=== PATIENT | male | born 1940 | race Caucasian/White ===

== ENCOUNTER → 2016-12-27 | Outpatient (CLI) | payer MEDICARE, OTHER ==
[~2016-12-27] MED LIST: ALL220TA; ROSU5
[2016-12-27 06:58] LABS: HEMATOCRIT 45.1 % (39.0-51.0); MEAN CELL VOLUME 90.5 FL (80.0-100.0); MEAN CORPUSCULAR HEMOGLOBIN 30.5 PG (27.0-34.0); MEAN CORPUSCULAR HGB CONC 33.7 % (32.0-36.0); PLATELET COUNT 127 TH/MM3 (150-450); RED BLOOD COUNT 4.98 MIL/MM3 (4.50-5.90); RED CELL DISTRIBUTION WIDTH 13.8 % (11.6-17.2); REVIEW FLAG FINAL
[2016-12-27 07:49] LABS: ALKALINE PHOSPHATASE 45 U/L (45-117); ALT (GPT) 37 U/L (12-78); ANION GAP 9 MEQ/L (5-15); AST (GOT) 40 U/L (15-37); BICARBONATE 28.6 MEQ/L (21.0-32.0); BLOOD UREA NITROGEN 12 MG/DL (7-18); CHLORIDE 97 MEQ/L (98-107); FREE T4 1.03 NG/DL (0.76-1.46); GLOMERULAR FILTRATION RATE 88 ML/MIN (>89); GLUCOSE,FASTING 177 MG/DL (74-99); POTASSIUM 3.9 MEQ/L (3.5-5.1); SODIUM (NA) 135 MEQ/L (136-145); TOTAL BILIRUBIN ADULT 0.5 MG/DL (0.2-1.0)
[2016-12-27 16:13] LABS: HEMOGLOBIN A1a 1.6 %; HEMOGLOBIN A1b 1.1 %; HEMOGLOBIN LA1C 2.4 %; HEMOGLOBIN P3 4.2 %
== END ==
LOC: CLAB 06:34
PROVIDERS: ATTEND Family Medicine
DX: E11.9 Type 2 diabetes mellitus without complications (principal); G31.84 Mild cognitive impairment of uncertain or unknown etiology; R94.6 Abnormal results of thyroid function studies; K52.1 Toxic gastroenteritis and colitis; Z12.5 Encounter for screening for malignant neoplasm of prostate
CPT/HCPCS: 36415; 80053; 83036; 84439; 84443; 85027; G0103

== ENCOUNTER 2017-05-19 04:15 | Inpatient (IN) | payer MEDICARE ==
[~2017-05-19] VITALS: Ht 170.2 cm; Wt 78.5 kg
[2017-05-19] VITALS (13 sets, daily range): BP systolic 125–158; BP diastolic 63–79; PULSE 83–100; RESP 16–32; TEMP 98.8–102.5; O2SAT 90–97
[2017-05-19] MEDS ORDERED: ROSU10 PO (04:33)
[2017-05-19] MEDS ORDERED: SILD20TA11 PO (04:33)
[2017-05-19] MEDS ORDERED: CENTCHW3 PO (04:33)
[2017-05-19] MEDS ORDERED: DONE10TA7 PO (04:33)
[2017-05-19] MEDS ORDERED: cefTRIAXone INJ 1,000 MG in SODIUM CHLORIDE 0.9% INJ 100 ML IV ONE (05:00)
[2017-05-19] MEDS ORDERED: ACETAMINOPHEN 325 MG TAB PO ONE (05:00)
[2017-05-19] MEDS ORDERED: AZITHROMYCIN INJ 500 MG in SODIUM CHLOR 0.9% 250 ML INJ 250 ML IV ONE (05:00)
[2017-05-19] MEDS ORDERED: RESP: ALBUTEROL 2.5 MG/IPRATROPIUM 0.5 MG NEB (SCH) NEB ONE ×2 (05:00→07:30)
[2017-05-19] MEDS ORDERED: SODIUM CHLORIDE 0.9% FLUSH 10 ML FLUSH IVF PRN ×2 (05:00→07:30)
--- NOTE | 2017-05-19 05:00 | PD ---
HPI Chief Complaint: Respiratory Symptoms Time Seen by Provider: 04:52 Travel History International Travel<30 days: No Contact w/Intl Traveler<30days: No Traveled to known affect area: No History of Present Illness HPI 77-year-old male presents to the emergency department by private transportation for evaluation of 3 weeks of progressively worsening cough. Caregiver notes that over the past 2 days patient has had increased altered mentation. Patient has chronic memory disturbance. Patient lives alone but has caregiver with him essentially at all times. Unknown fever. Nonproductive cough. Patient denies chest pain or shortness of breath. Patient's had no reported vomiting. Patient 's had no diarrhea but has had 2 episodes of reported bowel incontinence. No recent fall or injury. Patient denies any pain. No prior history of respiratory illness COPD or emphysema. PFSH Past Medical History Narrative Medical Dyslipidemia hyperglycemia/type 2 diabetes left inguinal herniorrhaphy cholecystectomy occasional alcohol use: Nursing notes reviewed High Cholesterol: Yes Diabetes: Yes (RECENTLY DIAGNOSED - PT "GOING TO SCHOOL FOR IT") Patient Takes Glucophage: No Diminished Hearing: No Tetanus Vaccination: Unknown Influenza Vaccination: No Past Surgical History Abdominal Surgery: Yes (LEFT INGUINAL HERNIA REPAIR) Cholecystectomy: Yes Social History Alcohol Use: Yes (DAILY WINE) Tobacco Use: No (QUIT 1988) Substance Use: No Allergies-Medications (Allergen,Severity, Reaction): Uncoded Allergies: NKA (Allergy, Unknown, 06/11/03) Reported Meds & Prescriptions Reported Meds & Active Scripts Active Reported Aspirin 325 Mg Tab 325 Mg PO DAILY Fish Oil ([place]-3 Fatty Acids) 1,000 Mg Cap 1 Cap PO DAILY Glucosamine 1,500 Mg Tab 1,500 Mg PO DAILY Vitamin C Sr (Ascorbic Acid) 500 Mg Caper 1,000 Mg PO DAILY Centrum Silver (Multiple Vitamins W/ Minerals) 1 Chw Chw 1 Chew PO DAILY Sildenafil 20 Mg Tab 20 Mg PO TID Donepezil 10 Mg Tab 10 Mg PO HS Crestor (Rosuvastatin Calcium) 10 Mg Tab 10 Mg PO DAILY Review of Systems Except as stated in HPI: all other systems reviewed are Neg General / Constitutional: No: Fever, Chills HENT: Positive: Congestion Cardiovascular: No: Chest Pain or Discomfort Respiratory: Positive: Cough, Shortness of Breath Gastrointestinal: No: Vomiting, Diarrhea, Abdominal Pain Genitourinary: No: Decreased Urinary Output Musculoskeletal: No: Pain Skin: No Rash Neurologic: Positive: Weakness Psychiatric: No: Anxiety Hematologic/Lymphatic: No: Lymph Node Enlargement Physical Exam Narrative GENERAL: Well-developed well-nourished male in no acute distress no respiratory distress with intermittent coughing; GCS 14 oriented to person and place this is baseline per caregiver SKIN: Warm and dry. HEAD: Normocephalic. EYES: No scleral icterus. No injection or drainage. NECK: Supple, trachea midline. No JVD or lymphadenopathy. CARDIOVASCULAR: Increased Regular rate and rhythm without murmurs, gallops, or rubs. RESPIRATORY: Breath sounds equal bilaterally diminished few crackles right base ; no wheezing. No accessory muscle use. GASTROINTESTINAL: Abdomen soft, non-tender, nondistended. MUSCULOSKELETAL: No cyanosis, or edema. BACK: Nontender without obvious deformity. No CVA tenderness. Data Data Last Documented VS Vital Signs Date Time Temp Pulse Resp B/P Pulse Ox O2 Delivery O2 Flow Rate FiO2 05/19/17 06:55 98.8 05/19/17 06:35 83 18 153/79 97 Nasal Cannula 2 Orders Complete Blood Count With Diff (05/19/17 04:52) Basic Metabolic Panel (Bmp) (05/19/17 04:52) B-Type Natriuretic Peptide (05/19/17 04:52) Magnesium (Mg) (05/19/17 04:52) Ckmb (Isoenzyme) Profile (05/19/17 04:52) Troponin I (05/19/17 04:52) Urinalysis - C+S If Indicated (05/19/17 04:52) Blood Culture (05/19/17 04:52) Iv Access Insert/Monitor (05/19/17 04:52) Electrocardiogram (05/19/17 04:52) Ecg Monitoring (05/19/17 04:52) Oximetry (05/19/17 04:52) Oxygen Administration (05/19/17 04:52) Chest, Single Ap (05/19/17 04:52) Sodium Chloride 0.9% Flush (Ns Flush) (05/19/17 05:00) Lactic Acid Sepsis Protocol (05/19/17 04:52) Acetaminophen (Tylenol) (05/19/17 05:00) Ceftriaxone Inj (Rocephin Inj) (05/19/17 05:00) Azithromycin Inj (Zithromax Inj) (05/19/17 05:00) Albuterol-Ipratropium Neb (Duoneb Neb) (05/19/17 05:00) CKMB (05/19/17 05:00) CKMB% (05/19/17 05:00) Sodium Chlor 0.9% 1000 Ml Inj (Ns 1000 M (05/19/17 06:15) Sodium Chlorid 0.9% 500 Ml Inj (Ns 500 M (05/19/17 06:30) Sodium Chlorid 0.9% 500 Ml Inj (Ns 500 M (05/19/17 06:30) Labs Laboratory Tests Test 05/19/17 05:00 White Blood Count 7.4 TH/MM3 Red Blood Count 4.37 MIL/MM3 Hemoglobin 14.0 GM/DL Hematocrit 39.3 % Mean Corpuscular Volume 90.1 FL Mean Corpuscular Hemoglobin 32.0 PG Mean Corpuscular Hemoglobin 35.5 % Concent Red Cell Distribution Width 11.8 % Platelet Count 158 TH/MM3 Mean Platelet Volume 8.6 FL Neutrophils (%) (Auto) 84.9 % Lymphocytes (%) (Auto) 6.0 % Monocytes (%) (Auto) 8.5 % Eosinophils (%) (Auto) 0.3 % Basophils (%) (Auto) 0.3 % Neutrophils # (Auto) 6.4 TH/MM3 Lymphocytes # (Auto) 0.4 TH/MM3 Monocytes # (Auto) 0.6 TH/MM3 Eosinophils # (Auto) 0.0 TH/MM3 Basophils # (Auto) 0.0 TH/MM3 CBC Comment DIFF FINAL Differential Comment Sodium Level 139 MEQ/L Potassium Level 4.3 MEQ/L Chloride Level 102 MEQ/L Carbon Dioxide Level 27.0 MEQ/L Anion Gap 10 MEQ/L Blood Urea Nitrogen 17 MG/DL Creatinine 0.96 MG/DL Estimat Glomerular Filtration 76 ML/MIN Rate Random Glucose 214 MG/DL Lactic Acid Level 2.2 mmol/L Calcium Level 8.9 MG/DL Magnesium Level 1.6 MG/DL Total Creatine Kinase 562 U/L Creatine Kinase MB 1.7 NG/ML Creatine Kinase MB % 0.3 % Troponin I LESS THAN 0.02 NG/ML B-Type Natriuretic Peptide 22 PG/ML MDM Medical Decision Making Medical Screen Exam Complete: Yes Emergency Medical Condition: Yes Medical Record Reviewed: Yes Interpretation(s) EKG normal sinus rhythm rate 97 interventricular conduction delay patient has inferior lateral ST segment flattening/depression concerning for inferior lateral ischemia no acute ST elevation Troponin I less than 0.02, not elevated CK 562 elevated with normal range MB percent of 0.3% BNP is not elevated at 22 Last Impressions Chest X-Ray 05/19/17 0452 Signed Impressions: Service Date/Time: May 05:19 - CONCLUSION: The lungs are clear. Imtiaz Bhakta MD CBC & BMP Diagram 05/19/17 05:00 Vital Signs Date Time Temp Pulse Resp B/P Pulse Ox O2 Delivery O2 Flow Rate FiO2 05/19/17 05:30 94 24 131/64 94 Nasal Cannula 2 05/19/17 05:21 96 Nasal Cannula 2.00 05/19/17 04:35 100.5 100 32 129/76 90 Nasal Cannula 2 05/19/17 04:35 100 32 90 Nasal Cannula 2 05/19/17 04:30 90 Nasal Cannula 2 05/19/17 04:30 32 90 Nasal Cannula 2 05/19/17 04:30 100.5 100 32 129/76 90 Nasal Cannula 2 05/19/17 04:24 99.2 100 18 157/72 94 Differential Diagnosis Cough, altered mentation, pneumonia, sepsis, uncontrolled diabetes, ACS,TIA, dementia Narrative Course IV access obtained specimens collected and sent for resulting temperature repeated an elevated at 100.5F patient administered acetaminophen and blood cultures and lactic acid for sepsis protocol specimens collected and patient presumptively treated for community-acquired pneumonia with Rocephin 1 g IV piggyback and azithromycin 500 mg IV piggyback Patient given DuoNeb updraft 1 Patient continued on supplemental oxygen 2 L/m nasal cannula O2 saturation has increased from 90% on room air to 95-96% in mentation has improved Patient administered IV fluid bolus and maintenance fluids call placed to [facility] service for admission Critical Care Narrative Aggregate critical care time was 35 minutes. Time to perform other separately billable procedures was not included in the critical care time. My time did not include minutes spent treating any other patients simultaneously or on activities that did not directly contribute to the patient's treatment. The services I provided to this patient were to treat and/or prevent clinically significant deterioration that could result in: Respiratory failure, septic shock, I provided critical care services requiring my management, as noted below: Chart data review, documentation time, medication orders and management, vital sign assessments/reviewing monitor data, ordering and reviewing lab tests, ordering and interpreting/reviewing x-rays and diagnostic studies, care of the patient and discussion of the patient with the admitting physicians. Sepsis Criteria SIRS Criteria (2 or more): Heart rate over 90, RR > 20 or PaCO2 < 32 Sepsis Criteria (SIRS+source): Infect source susp/known (bronchitis) Severe Sepsis (+one): Lactate >2 Criteria Outcome: Meets SIRS criteria (RR HR), Meets sepsis criteria (Sirs + bronchitis -early/dry pneumonia and lactic acid 2.2) Physician Communication Physician Communication call placed to [facility] service --discussed with Dr Wyatt Diagnosis Primary Impression: Febrile illness Additional Impressions: SIRS (systemic inflammatory response syndrome) Bronchitis Dementia Qualified Code: F03.90 - Dementia without behavioral disturbance, unspecified dementia type Admitting Information Admitting Physician Requests: Ellie Elam MD May 19, 2017 05:00
[2017-05-19 05:17] LABS: AUTOMATED NEUTROPHIL # 6.4 TH/MM3 (1.8-7.7); BASOPHIL % 0.3 % (0.0-2.0); EOSINOPHIL % 0.3 % (0.0-4.0); HEMATOCRIT 39.3 % (39.0-51.0); HEMO FLAGS DIFF FINAL; LYMPHOCYTE # 0.4 TH/MM3 (1.0-4.8); MEAN CELL VOLUME 90.1 FL (80.0-100.0); MEAN CORPUSCULAR HGB CONC 35.5 % (32.0-36.0); MONO % 8.5 % (0.0-8.0); NEUT % 84.9 % (16.0-70.0); PLATELET COUNT 158 TH/MM3 (150-450); RED BLOOD COUNT 4.37 MIL/MM3 (4.50-5.90); RED CELL DISTRIBUTION WIDTH 11.8 % (11.6-17.2); WHITE BLOOD COUNT 7.4 TH/MM3 (4.0-11.0)
[2017-05-19 05:23] LABS: CHLORIDE 102 MEQ/L (98-107); POTASSIUM 4.3 MEQ/L (3.5-5.1); SODIUM (NA) 139 MEQ/L (136-145)
[2017-05-19 05:26] LABS: ANION GAP 10 MEQ/L (5-15); BLOOD UREA NITROGEN 17 MG/DL (7-18); MAGNESIUM 1.6 MG/DL (1.5-2.5)
[2017-05-19 05:30] LABS: GLOMERULAR FILTRATION RATE 76 ML/MIN (>89)
[2017-05-19 05:33] LABS: CREATINE KINASE 562 U/L (39-308)
[2017-05-19 05:45] LABS: CKMB 1.7 NG/ML (0.5-3.6)
--- NOTE | 2017-05-19 05:58 | RADRPT ---
EXAM DATE/TIME: 05/19/2017 05:19 [place] COMPARISON: No previous studies available for comparison. INDICATIONS : Short of breath. MEDICAL HISTORY : None. SURGICAL HISTORY : None. ENCOUNTER: Initial ACUITY: 1 day PAIN SCORE: 0/10 LOCATION: Bilateral chest FINDINGS: A single view of the chest demonstrates the lungs to be symmetrically aerated without evidence of mas s, infiltrate or effusion. The cardiomediastinal contours are unremarkable. Osseous structures are intact. CONCLUSION: The lungs are clear. Imtiaz Bhakta MD on May 19, 2017 at 5:56 Board Certified Radiologist. This report was verified electronically.
[2017-05-19] MEDS ORDERED: VITA500C18 PO (06:19)
[2017-05-19] MEDS ORDERED: GLUC15009 PO (06:19)
[2017-05-19] MEDS ORDERED: FISH1000 PO (06:19)
[2017-05-19] MEDS ORDERED: ASPI325T PO (06:21)
[2017-05-19] MEDS ORDERED: SODIUM CHLORID 0.9% 500 ML INJ 500 ML IV ONE ×2 (06:30)
[2017-05-19] MEDS: SODIUM CHLOR 0.9% 1000 ML INJ 1,000 ML IV SCH ×3 (06:42→22:15)
[2017-05-19 07:11] LABS: LACTIC ACID GHOST NOT REPORTABLE
[2017-05-19] MEDS ORDERED: ONDANSETRON HCL 4 MG/2 ML VIAL IVP PRN (08:15)
[2017-05-19] MEDS ORDERED: NALOXONE HCL 0.4 MG/ML AMP IV PRN (08:15)
[2017-05-19] MEDS ORDERED: SENNOSIDES 8.6 MG TAB PO PRN (08:15)
[2017-05-19] MEDS ORDERED: BISACODYL 10 MG SUPP RECTAL PRN (08:15)
[2017-05-19] MEDS ORDERED: SODIUM CHLORIDE 0.9% FLUSH 10 ML FLUSH IV FLUSH PRN ×2 (08:15→12:00)
[2017-05-19] MEDS ORDERED: LACTULOSE SYRUP 20 GM/30 ML CUP PO PRN (08:15)
[2017-05-19] MEDS ORDERED: MAGNESIUM HYDROXIDE SUSP 30 ML CUP PO PRN (08:15)
[2017-05-19 08:35] LABS: BLOOD, URINE NEG (NEG); GLUCOSE,URINE NEG (NEG); KETONE, URINE NEG (NEG); METHOD OF COLLECTION CLEAN CATCH; NITRITE,URINE NEG (NEG); PH, URINE 5.5 (5.0-8.5)
[2017-05-19 08:36] LABS: URINE COLOR YELLOW (YELLW/STRAW)
[2017-05-19 08:41] LABS: COMMENT (UR) CULT NOT INDICATED; COMMENT2 (UR) MUCOUS PRESENT; CULTURE IF INDICATED CULT NOT INDICATED; SQUAMOUS EPITHELIAL CELL URINE 0-5 /hpf (0-5)
[2017-05-19] MEDS: SODIUM CHLORIDE 0.9% FLUSH 10 ML FLUSH IV FLUSH SCH ×2 (09:00→21:00)
[2017-05-19] MEDS ORDERED: SODIUM CHLORIDE 0.9% FLUSH 10 ML FLUSH IV FLUSH SCH (09:00)
[2017-05-19] MEDS: ACETAMINOPHEN 325 MG TAB PO PRN ×2 (10:41→17:22)
--- NOTE | 2017-05-19 11:54 | HHI.HP ---
[facility] Cee Spence MD Admission Diagnosis febrile illness; sirs; bronchitis Diagnoses: (1) Severe sepsis Diagnosis: Principal (2) Febrile illness Diagnosis: Principal (3) Bronchitis Diagnosis: Principal Chief Complaint: Cough Travel History International Travel<30 Days: No Contact w/Intl Traveler <30 Da: No Traveled to Known Affected Are: No Sepsis Criteria SIRS Criteria (2 or more): Heart rate over 90, RR > 20 or PaCO2 < 32 Sepsis Criteria (SIRS+source): Infect source susp/known Severe Sepsis (+one): Lactate >2 History of Present Illness Written by Mohsen Avila, acting as scribe for Dr. Stevenson on 05/19/17 at 11: 40. 77 year-old male with known history of hypertension, hyperlipidemia, diabetes, dementia who is brought to evaluate a cough. Patient himself has dementia, information was difficult to obtain from him. Information was taken from medical records. Patient is only orientated to city, state, president. As indicated by ER documentation that the patient has had 3 week history of progressive cough. As indicated by caregiver that he is had worsening mentation over the last couple days. The patient does live alone but has a caregiver with him essentially all the time.. Patient had workup done emergency department found to have fever, tachypnea, tachycardia, lactic acidosis, cough with bronchitis. Patient meets SIRS, probably early sepsis.Patient is being admitted for further evaluation management. Review of Systems ROS Limitations: Poor Historian Unable to obtain accurate review of systems due to the patient's current medical condition. Past Family Social History Past Medical History Unable to obtain information from the patient, information taken from medical records Hypertension Hyperlipidemia Diabetes History of tobacco use Dementia Past Surgical History Unable to obtain information from patient, information taken from medical records Left inguinal hernia repair Reported Medications Reported Meds & Active Scripts Active Reported Aspirin 325 Mg Tab 325 Mg PO DAILY Fish Oil ([place]-3 Fatty Acids) 1,000 Mg Cap 1 Cap PO DAILY Glucosamine 1,500 Mg Tab 1,500 Mg PO DAILY Vitamin C Sr (Ascorbic Acid) 500 Mg Caper 1,000 Mg PO DAILY Centrum Silver (Multiple Vitamins W/ Minerals) 1 Chw Chw 1 Chew PO DAILY Sildenafil 20 Mg Tab 20 Mg PO TID Donepezil 10 Mg Tab 10 Mg PO HS Crestor (Rosuvastatin Calcium) 10 Mg Tab 10 Mg PO DAILY Allergies: Uncoded Allergies: NKA (Allergy, Unknown, 06/11/03) Family History Unable to obtain any information from the patient, family history is unknown Social History Unable to obtain information from the patient. Information taken from medical records Is indicating the patient quit smoking in 1988, indicates that he drinks wine daily. No indication of any illicit drugs Physical Exam Vital Signs Vital Signs Date Time Temp Pulse Resp B/P Pulse Ox O2 Delivery O2 Flow Rate FiO2 05/19/17 11:00 100.0 98 22 158/74 94 05/19/17 10:52 102.5 90 18 145/76 94 Room Air 05/19/17 09:04 96 Nasal Cannula 2.00 05/19/17 07:26 20 98 Nasal Cannula 2 05/19/17 06:55 98.8 05/19/17 06:35 83 18 153/79 97 Nasal Cannula 2 05/19/17 05:30 94 24 131/64 94 Nasal Cannula 2 05/19/17 05:21 96 Nasal Cannula 2.00 05/19/17 04:35 100.5 100 32 129/76 90 Nasal Cannula 2 05/19/17 04:35 100 32 90 Nasal Cannula 2 05/19/17 04:30 90 Nasal Cannula 2 05/19/17 04:30 32 90 Nasal Cannula 2 05/19/17 04:30 100.5 100 32 129/76 90 Nasal Cannula 2 05/19/17 04:24 99.2 100 18 157/72 94 Physical Exam GENERAL: Well-developed, well-nourished, in no acute distress. alert and orientated HEENT: Head is normocephalic without any lesions or masses noted. Facial features are symmetric. Eyes: Pupils equal round reactive to light. Extraocular muscles are intact. Conjunctivae were clear. Oropharyngeal: Pharynx without any erythema edema. Tongue is midline without deviation. Buccal mucosa is moist without any masses or lesions NECK: Supple without any masses. Trachea midline no deviation. No JVD, no bruits are appreciated CARDIAC: Regular rhythm, regular rate. S1/S2 are heard. 2/6 ejection murmur, no gallops or rubs. LUNGS: Patient with dry rattle cough. No wheeze, rhonchi or rales. No use of accessory muscles on inspiration or expiration. ABDOMEN: Soft, nontender. Nondistended. Bowel sounds heard in all 4 quadrants. No organomegaly or masses. Negative rebound, negative guarding EXTREMITIES: No edema, pulses are equal bilaterally. No cyanosis or clubbing NEUROLOGY: Mood and affect appear appropriate. Cranial nerves II through XII grossly intact. Muscle strength 5/5 in upper and lower extremities bilaterally. Deep tendon reflexes are 2+ in upper and lower extremities bilaterally. Laboratory Laboratory Tests Test 05/19/17 05/19/17 05/19/17 05:00 07:22 08:26 White Blood Count 7.4 Red Blood Count 4.37 Hemoglobin 14.0 Hematocrit 39.3 Mean Corpuscular Volume 90.1 Mean Corpuscular Hemoglobin 32.0 Mean Corpuscular Hemoglobin 35.5 Concent Red Cell Distribution Width 11.8 Platelet Count 158 Mean Platelet Volume 8.6 Neutrophils (%) (Auto) 84.9 Lymphocytes (%) (Auto) 6.0 Monocytes (%) (Auto) 8.5 Eosinophils (%) (Auto) 0.3 Basophils (%) (Auto) 0.3 Neutrophils # (Auto) 6.4 Lymphocytes # (Auto) 0.4 Monocytes # (Auto) 0.6 Eosinophils # (Auto) 0.0 Basophils # (Auto) 0.0 CBC Comment DIFF FINAL Differential Comment Sodium Level 139 Potassium Level 4.3 Chloride Level 102 Carbon Dioxide Level 27.0 Anion Gap 10 Blood Urea Nitrogen 17 Creatinine 0.96 Estimat Glomerular Filtration 76 Rate Random Glucose 214 Lactic Acid Level 2.2 2.3 Calcium Level 8.9 Magnesium Level 1.6 Total Creatine Kinase 562 Creatine Kinase MB 1.7 Creatine Kinase MB % 0.3 Troponin I LESS THAN 0.02 B-Type Natriuretic Peptide 22 Urine Collection Type CLEAN CATCH Urine Color YELLOW Urine Turbidity CLEAR Urine pH 5.5 Urine Specific [place] 1.013 Urine Protein TRACE Urine Glucose (UA) NEG Urine Ketones NEG Urine Occult Blood NEG Urine Nitrite NEG Urine Bilirubin NEG Urine Leukocyte Esterase NEG Urine Squamous Epithelial 0-5 Cells Urine Amorphous Sediment FEW Microscopic Urinalysis Comment CULT NOT INDICATED Urine Collection Time 0826 Date/Time Procedure Status Source Growth 05/19/17 05:07 Aerobic Blood Culture Received Blood Peripheral Pending 05/19/17 05:07 Anaerobic Blood Culture Received Blood Peripheral Pending Result Diagram: 05/19/17 0500 05/19/17 0500 Imaging Last Impressions Chest X-Ray 05/19/17 0452 Signed Impressions: Service Date/Time: May 05:19 - CONCLUSION: The lungs are clear. Imtiaz Bhakta MD Septic Shock Reassessment Heart: Regular rate and rhythm Lungs: Other (dry rattling cough) Skin: Warm, [place] Peripheral Pulses: Bounding Right Radial Bounding Left Radial Capillary Refill: Brisk, <2 seconds Assessment and Plan Assessment and Plan Sepsis Patient meets criteria with febrile illness, tachycardia, tachypnea, lactic acidosis, possible underlying bronchitis and early pneumonia Patient will restart empirical antibiotics include Rocephin, Zithromax Urinalysis was clear Blood cultures have been ascertain We'll check influenza testing, streptococcal testing, Legionella testing, Continue follow lactic acid level Bronchitis, possible early pneumonia Continue empirical antibiotics as above Duo nebs Continue O2 supplementation maintain O2 sats greater than 92% Obtain sputum culture if able to expectorate. Elevated CPK Unknown etiology could be secondary to acute illness, statin Continue monitor CPK level, Hold statin Diabetes Accu-Cheks with sliding scale insulin DVT prevention Subcutaneous heparin This note was transcribed by scribe [Mohsen Avila]. I, Dr. Roverto Stevenson personally performed the history, physical exam, and medical decision making; and confirmed the accuracy of the information in the transcribed note. Authenticated by Dr. Roverto Stevenson on 05/19/17 at 1145. Mohsen Avila May 19, 2017 11:54 Roverto Stevenson MD May 19, 2017 13:06
[2017-05-19] MEDS: HEPARIN SODIUM - SQ 10,000 UNITS/ML VIAL SQ SCH ×2 (12:00→22:03)
[2017-05-19] MEDS ORDERED: RESP: ALBUTEROL 2.5 MG/IPRATROPIUM 0.5 MG NEB (PRN) NEB (12:15)
[2017-05-19] MEDS: RESP: ALBUTEROL 2.5 MG/IPRATROPIUM 0.5 MG NEB (SCH) NEB ×4 (12:27→23:11)
[2017-05-19 13:13] LABS: CKMB 2.2 NG/ML (0.5-3.6)
--- NOTE | 2017-05-19 16:46 | EKG ---
Date Performed: 05/19/2017 Time Performed: 05:51:08 PTAGE: 77 years EKG: Sinus rhythm MODERATE INTRAVENTRICULAR CONDUCTION DELAY ST DEVIATION AND MODERATE T-WAVE ABNORMALITY, CONSIDER LA TERAL ISCHEMIA ST DEVIATION AND MODERATE T-WAVE ABNORMALITY, CONSIDER INFERIOR ISCHEMIA ABNORMAL ECG NO PREVIOUS TRACING DOCTOR: Nicho Garcia Interpretating Date/Time 05/19/2017 16:44:18
[2017-05-19] MEDS ORDERED: NAME10TA PO (18:20)
[2017-05-19] MEDS: guaiFENesin/CODEINE SYRUP 200 MG/20 MG/10 ML CUP PO PRN (22:03)
[2017-05-20] VITALS (7 sets, daily range): BP systolic 135–162; BP diastolic 70–89; PULSE 84–100; RESP 16–24; TEMP 98.5–99.8; O2SAT 92–96
[2017-05-20] MEDS: RESP: ALBUTEROL 2.5 MG/IPRATROPIUM 0.5 MG NEB (SCH) NEB ×6 (03:29→23:35)
[2017-05-20] MEDS: guaiFENesin/CODEINE SYRUP 200 MG/20 MG/10 ML CUP PO PRN ×3 (04:58→17:58)
[2017-05-20] MEDS: AZITHROMYCIN INJ 500 MG in SODIUM CHLOR 0.9% 250 ML INJ 250 ML IV SCH (04:59)
[2017-05-20 05:59] LABS: AUTOMATED NEUTROPHIL # 3.8 TH/MM3 (1.8-7.7); BASOPHIL % 0.5 % (0.0-2.0); EOSINOPHIL % 0.8 % (0.0-4.0); HEMO FLAGS DIFF FINAL; LYMPH % 15.8 % (9.0-44.0); LYMPHOCYTE # 0.8 TH/MM3 (1.0-4.8); MEAN CELL VOLUME 91.4 FL (80.0-100.0); MEAN CORPUSCULAR HEMOGLOBIN 31.8 PG (27.0-34.0); MEAN CORPUSCULAR HGB CONC 34.8 % (32.0-36.0); MONO % 7.5 % (0.0-8.0); NEUT % 75.4 % (16.0-70.0); PLATELET COUNT 118 TH/MM3 (150-450); RED BLOOD COUNT 3.94 MIL/MM3 (4.50-5.90); RED CELL DISTRIBUTION WIDTH 11.9 % (11.6-17.2)
[2017-05-20 06:02] LABS: POTASSIUM 4.4 MEQ/L (3.5-5.1)
[2017-05-20 06:34] LABS: BICARBONATE 27.1 MEQ/L (21.0-32.0)
[2017-05-20] MEDS: SODIUM CHLOR 0.9% 1000 ML INJ 1,000 ML IV SCH (08:34)
[2017-05-20] MEDS: cefTRIAXone INJ 1,000 MG in SODIUM CHLORIDE 0.9% INJ 100 ML IV SCH (08:35)
[2017-05-20] MEDS: SODIUM CHLORIDE 0.9% FLUSH 10 ML FLUSH IV FLUSH SCH ×2 (08:36→20:52)
--- NOTE | 2017-05-20 08:57 | HHI.PR ---
Subjective Remarks Patient appears more awake today. He can hold a simple conversation but is very confused about orientation and his current situation. He reports that he is still coughing a lot. No increased in shortness of breath. No chest pain. Objective Vitals Vital Signs Date Time Temp Pulse Resp B/P Pulse Ox O2 Delivery O2 Flow Rate FiO2 05/20/17 08:03 94 Nasal Cannula 2.00 05/20/17 00:00 99.0 94 16 141/70 95 05/19/17 20:00 99.2 96 16 139/74 93 05/19/17 19:16 95 Nasal Cannula 2.00 05/19/17 16:00 101.8 96 18 125/63 95 05/19/17 11:00 100.0 98 22 158/74 94 05/19/17 10:52 102.5 90 18 145/76 94 Room Air 05/19/17 09:04 96 Nasal Cannula 2.00 I/O 05/19/17 05/19/17 05/19/17 05/20/17 05/20/17 05/20/17 07:00 15:00 23:00 07:00 15:00 23:00 Intake Total 968 ml 625 ml 240 ml Output Total 300 ml 400 ml 500 ml Balance 668 ml 225 ml -260 ml Intake Oral 468 ml 625 ml 240 ml IV Total 500 ml Output Urine Total 300 ml 400 ml 500 ml # Voids 3 # Bowel Movements 1 Result Diagram: 05/20/17 0535 05/20/17 0535 Imaging Last Impressions Chest X-Ray 05/19/17 0452 Signed Impressions: Service Date/Time: May 05:19 - CONCLUSION: The lungs are clear. Imtiaz Bhakta MD Objective Remarks GENERAL: This is a well-nourished, well-developed patient, in no apparent distress. CARDIOVASCULAR: Normal rate and regular rhythm without murmurs, gallops, or rubs. RESPIRATORY: Good respiratory efforts. Breath sounds equal and clear to auscultation bilaterally. GASTROINTESTINAL: Abdomen soft, non-tender, non-distended. Normal active bowel sounds MUSCULOSKELETAL: Extremities without cyanosis, or edema. NEURO: Alert & Oriented x4 to person, place, time, situation. Moves all ext x4 PSYCH: Appropriate mood and affect. A/P Problem List: (1) Sepsis ICD Code: A41.9 Status: Acute (2) Febrile illness ICD Code: R50.9 Status: Acute (3) Bronchitis ICD Code: J40 Status: Acute Assessment and Plan 77-year-old male with dementia who reportedly has been having cough for a few weeks and became more confused admitted with sepsis, bronchitis and possible pneumonia. Positive for influenza A. Sepsis, positive for influenza A. Symptoms reportedly has been ongoing for a few weeks. However the patient is demented and not able to give an accurate history. Given persistent fever and elevated neutrophils. Concerned about superimposed bacterial infection. Continue treatment with Rocephin, Zithromax. Add Tamiflu. Urinalysis was clear Blood cultures so far negative. Urine Legionella and Strep negative. Bronchitis, possible early pneumonia Continue antibiotics as above Duo nebs Continue O2 supplementation maintain O2 sats greater than 92% Obtain sputum culture if able to expectorate. Dementia: At baseline the patient lives by himself but he has a friend, Susan who goes to the house every day and take him out to eat. I spoke to the patient 's sister who is on the [facility]. He reports that Susan will continue to care for him. She knows him best. Elevated CPK Unknown etiology could be secondary to acute illness, statin Continue monitor CPK level, Hold statin Diabetes Accu-Cheks with sliding scale insulin DVT prevention Subcutaneous heparin Discharge Planning Continue current treatment. Wean off oxygen as tolerated. Possible DC in 1-2 days. 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 Roverto Stevenson MD May 20, 2017 08:57
[2017-05-20] MEDS: HEPARIN SODIUM - SQ 10,000 UNITS/ML VIAL SQ SCH ×2 (12:03→23:10)
[2017-05-20] MEDS: OSELTAMIVIR PHOSPHATE 75 MG CAP PO SCH (12:03)
[2017-05-20] MEDS: ACETAMINOPHEN 325 MG TAB PO PRN (20:53)
[2017-05-21] VITALS (7 sets, daily range): BP systolic 143–155; BP diastolic 82–98; PULSE 80–93; RESP 17–20; TEMP 97.2–97.9; O2SAT 90–99
[2017-05-21] MEDS: RESP: ALBUTEROL 2.5 MG/IPRATROPIUM 0.5 MG NEB (SCH) NEB ×6 (03:31→23:27)
[2017-05-21] MEDS: AZITHROMYCIN INJ 500 MG in SODIUM CHLOR 0.9% 250 ML INJ 250 ML IV SCH (06:22)
[2017-05-21 07:07] LABS: HEMATOCRIT 36.5 % (39.0-51.0); MEAN CELL VOLUME 90.7 FL (80.0-100.0); MEAN CORPUSCULAR HEMOGLOBIN 31.7 PG (27.0-34.0); PLATELET COUNT 128 TH/MM3 (150-450); RED BLOOD COUNT 4.03 MIL/MM3 (4.50-5.90); RED CELL DISTRIBUTION WIDTH 12.2 % (11.6-17.2); REVIEW FLAG FINAL; WHITE BLOOD COUNT 3.1 TH/MM3 (4.0-11.0)
[2017-05-21 07:26] LABS: BICARBONATE 29.4 MEQ/L (21.0-32.0)
[2017-05-21] MEDS: OSELTAMIVIR PHOSPHATE 75 MG CAP PO SCH (08:37)
[2017-05-21] MEDS: SODIUM CHLORIDE 0.9% FLUSH 10 ML FLUSH IV FLUSH SCH ×2 (08:37→21:32)
[2017-05-21] MEDS: cefTRIAXone INJ 1,000 MG in SODIUM CHLORIDE 0.9% INJ 100 ML IV SCH (08:37)
[2017-05-21] MEDS: guaiFENesin/CODEINE SYRUP 200 MG/20 MG/10 ML CUP PO PRN (08:52)
[2017-05-21] MEDS: ACETAMINOPHEN 325 MG TAB PO PRN ×3 (08:52→21:33)
[2017-05-21] MEDS: HEPARIN SODIUM - SQ 10,000 UNITS/ML VIAL SQ SCH ×2 (12:21→21:37)
--- NOTE | 2017-05-21 13:45 | HHI.PR ---
Subjective Remarks The patient is pleasantly confused. He denies shortness of breath. States his cough is improving. Objective Vitals Vital Signs Date Time Temp Pulse Resp B/P Pulse Ox O2 Delivery O2 Flow Rate FiO2 05/21/17 09:52 18 05/21/17 08:00 97.7 89 17 155/98 99 05/21/17 07:30 96 Nasal Cannula 2.00 05/21/17 04:50 05/21/17 01:35 97.4 80 20 145/84 94 05/20/17 21:22 99.0 100 24 162/89 92 05/20/17 19:30 96 Nasal Cannula 2.00 05/20/17 16:00 99.2 84 22 142/76 94 I/O 05/20/17 05/20/17 05/20/17 05/21/17 05/21/17 05/21/17 07:00 15:00 23:00 07:00 15:00 23:00 Intake Total 240 ml 950 ml 350 ml Output Total 500 ml 1425 ml 1600 ml Balance -260 ml -475 ml 350 ml -1600 ml Intake Oral 240 ml 950 ml 350 ml Output Urine Total 500 ml 1425 ml 850 ml Stool Total 750 ml # Voids 1 # Bowel Movements 0 Result Diagram: 05/21/1761305/21/1714 Objective Remarks GENERAL: Well-nourished, well-developed patient. SKIN: Warm and dry. HEAD: Normocephalic. EYES: No scleral icterus. No injection or drainage. NECK: Supple, trachea midline. No JVD or lymphadenopathy. CARDIOVASCULAR: Regular rate and rhythm without murmurs, gallops, or rubs. RESPIRATORY: Breath sounds equal bilaterally. No accessory muscle use. GASTROINTESTINAL: Abdomen soft, non-tender, nondistended. EXTREMITIES: No cyanosis, or edema. NEUROLOGICAL: Awake, alert, and oriented to self only. Non-focal. A/P Problem List: (1) Sepsis ICD Code: A41.9 Status: Acute (2) Febrile illness ICD Code: R50.9 Status: Acute (3) Bronchitis ICD Code: J40 Status: Acute Assessment and Plan 77-year-old male with dementia who reportedly has been having cough for a few weeks and became more confused admitted with sepsis, bronchitis and possible pneumonia. Positive for influenza A. Sepsis, positive for influenza A. Symptoms reportedly has been ongoing for a few weeks. However the patient is demented and not able to give an accurate history. Given persistent fever and elevated neutrophils. Concerned about superimposed bacterial infection. Continue treatment with Rocephin, Zithromax. Add Tamiflu. Urinalysis was clear Blood cultures so far negative. Urine Legionella and Strep negative. Bronchitis, likely due to influenza A - cxr clear Continue antibiotics as above Duo nebs Continue O2 supplementation maintain O2 sats greater than 92% -Check O2 walk test Obtain sputum culture if able to expectorate. Dementia: At baseline the patient lives by himself but he has a friend, Susan who goes to the house every day and take him out to eat. Elevated CPK -rhabdomylosis Unknown etiology could be secondary to acute illness, statin Continue monitor CPK level, Hold statin Diabetes Accu-Cheks with sliding scale insulin DVT prevention Subcutaneous heparin Evie Roberts MD May 21, 2017 13:45
--- NOTE | 2017-05-21 13:57 | HHI.FF ---
Face to Face Verification Diagnosis: (1) Bronchitis (2) Influenza A Physical Therapy Order: Evaluate and Treat Home Health Nursing Order: Medical education Nursing assessment with vital signs I have seen patient Mauricio Mcgarry on 05/21/17. My clinical findings support the need for the requested home health care services because: Med compliance is questionable Need for psychosocial assistance Infection w/ risk of complications I certify that my clinical findings support that this patient is homebound because: Unsafe to leave home unassisted Need for psychosocial assistance Evie Roberts MD May 21, 2017 13:57
[2017-05-21] MEDS ORDERED: SILDENAFIL CITRATE 20 MG TAB PO SCH (18:00)
[2017-05-21] MEDS ORDERED: DONEPEZIL HCL 5 MG TAB PO SCH (21:00)
[2017-05-21] MEDS ORDERED: MEMANTINE HCL 10 MG TAB PO SCH (21:00)
[2017-05-21] MEDS ORDERED: OSELTAMIVIR PHOSPHATE 75 MG CAP PO SCH (21:00)
[2017-05-22 00:53] VITALS: BP 121/71; PULSE 90; RESP 16; TEMP 98; O2SAT 92
[2017-05-22] MEDS: RESP: ALBUTEROL 2.5 MG/IPRATROPIUM 0.5 MG NEB (SCH) NEB ×3 (03:16→11:15)
[2017-05-22 06:01] LABS: AUTOMATED NEUTROPHIL # 1.8 TH/MM3 (1.8-7.7); BASOPHIL % 0.6 % (0.0-2.0); EOSINOPHIL # 0.1 TH/MM3 (0-0.4); EOSINOPHIL % 3.9 % (0.0-4.0); HEMATOCRIT 38.5 % (39.0-51.0); HEMO FLAGS DIFF FINAL; LYMPH % 26.9 % (9.0-44.0); LYMPHOCYTE # 0.9 TH/MM3 (1.0-4.8); MEAN CELL VOLUME 91.5 FL (80.0-100.0); MEAN CORPUSCULAR HGB CONC 33.9 % (32.0-36.0); MONO % 12.3 % (0.0-8.0); NEUT % 56.3 % (16.0-70.0); PLATELET COUNT 147 TH/MM3 (150-450); RED CELL DISTRIBUTION WIDTH 11.6 % (11.6-17.2); WHITE BLOOD COUNT 3.2 TH/MM3 (4.0-11.0)
[2017-05-22 06:12] LABS: POTASSIUM 4.3 MEQ/L (3.5-5.1)
[2017-05-22 06:19] LABS: BICARBONATE 27.9 MEQ/L (21.0-32.0)
[2017-05-22 06:43] LABS: CKMB 1.6 NG/ML (0.5-3.6)
[2017-05-22 07:25] VITALS: O2SAT 99
[2017-05-22 07:48] VITALS: BP 142/83; PULSE 81; RESP 17; TEMP 98; O2SAT 94
[2017-05-22] MEDS ORDERED: AZITHROMYCIN 250 MG TAB PO SCH (09:00)
[2017-05-22] MEDS ORDERED: ATORVASTATIN 20 MG TAB PO SCH (09:00)
[2017-05-22] MEDS ORDERED: ASPIRIN 325 MG TAB PO SCH (09:00)
[2017-05-22 12:00] VITALS: BP 138/79; PULSE 79; RESP 18; TEMP 97.7; O2SAT 96
--- NOTE | 2017-05-22 13:11 | HHI.DS ---
Discharge Summary Admission Date May 19, 2017 at 15:44 Discharge Date: May 22, 2017 Admitting Diagnosis febrile illness; sirs; bronchitis (1) Febrile illness ICD Code: R50.9 - Fever, unspecified Status: Acute (2) Bronchitis ICD Code: J40 - Bronchitis, not specified as acute or chronic Status: Acute (3) Influenza A ICD Code: J10.1 - Influenza due to other identified influenza virus with other respiratory manifestations Status: Acute (4) SIRS (systemic inflammatory response syndrome) ICD Code: R65.10 - Systemic inflammatory response syndrome (SIRS) of non- infectious origin without acute organ dysfunction Status: Acute Procedures None Brief History - From Admission Written by Mohsen Avila, acting as scribe for Dr. Stevenson on 05/19/17 at 11: 40. 77 year-old male with known history of hypertension, hyperlipidemia, diabetes, dementia who is brought to evaluate a cough. Patient himself has dementia, information was difficult to obtain from him. Information was taken from medical records. Patient is only orientated to city, state, president. As indicated by ER documentation that the patient has had 3 week history of progressive cough. As indicated by caregiver that he is had worsening mentation over the last couple days. The patient does live alone but has a caregiver with him essentially all the time.. Patient had workup done emergency department found to have fever, tachypnea, tachycardia, lactic acidosis, cough with bronchitis. Patient meets SIRS, probably early sepsis.Patient is being admitted for further evaluation management. CBC/BMP: 05/22/17 0524 05/22/17 0524 Significant Findings Laboratory Tests Test 05/20/17 05:35 05/21/17 06:14 05/22/17 05:24 Red Blood Count 3.94 MIL/MM3 (4.50-5.90) 4.03 MIL/MM3 (4.50-5.90) 4.20 MIL/MM3 (4.50-5.90) Hemoglobin 12.5 GM/DL (13.0-17.0) 12.8 GM/DL (13.0-17.0) Hematocrit 36.0 % (39.0-51.0) 36.5 % (39.0-51.0) 38.5 % (39.0-51.0) Platelet Count 118 TH/MM3 (150-450) 128 TH/MM3 (150-450) 147 TH/MM3 (150-450) Neutrophils (%) (Auto) 75.4 % (16.0-70.0) Lymphocytes # (Auto) 0.8 TH/MM3 (1.0-4.8) 0.9 TH/MM3 (1.0-4.8) Random Glucose 166 MG/DL (74-106) 172 MG/DL (74-106) 169 MG/DL (74-106) Calcium Level 8.1 MG/DL (8.5-10.1) Total Creatine Kinase 1054 U/L (39-308) 391 U/L (39-308) White Blood Count 3.1 TH/MM3 (4.0-11.0) 3.2 TH/MM3 (4.0-11.0) Monocytes (%) (Auto) 12.3 % (0.0-8.0) Imaging Last Impressions Chest X-Ray 05/19/17 3582 Signed Impressions: Service Date/Time: May 05:19 - CONCLUSION: The lungs are clear. Imtiaz Bhakta MD PE at Discharge GENERAL: Well-nourished, well-developed patient. SKIN: Warm and dry. HEAD: Normocephalic. EYES: No scleral icterus. No injection or drainage. NECK: Supple, trachea midline. No JVD or lymphadenopathy. CARDIOVASCULAR: Regular rate and rhythm without murmurs, gallops, or rubs. RESPIRATORY: Breath sounds equal bilaterally. No accessory muscle use. GASTROINTESTINAL: Abdomen soft, non-tender, nondistended. EXTREMITIES: No cyanosis, or edema. NEUROLOGICAL: Awake, alert, and oriented to self only. Non-focal. Pt update on day of discharge The patient states that he feels well today and that his cough is nearly resolved. He would like to go home. Hospital Course 77-year-old male with dementia who reportedly has been having cough for a few weeks and became more confused admitted with sepsis, bronchitis and possible pneumonia. Positive for influenza A. The patient was treated with antibiotics and Tamiflu. Blood cultures, chest x-ray were negative as was urinalysis. Oxygen walk test was within normal limits. The patient also had elevation of CPK which trended down nicely. His statin was held. Dementia is at baseline. Per his sister he does have a friend who lives next door and checks on him daily and the sister requested he be discharged home. The patient is ambulatory 450 feet without needing any help as per PT evaluation. The patient will be discharged home today with home health care. Pt Condition on Discharge: Stable Discharge Disposition: Disch w/ Home Health Serv Discharge Time: > 30 minutes Discharge Instructions DIET: Follow Instructions for: Heart Healthy Diet, Diabetic Diet Activities you can perform: Regular-No Restrictions Follow up Referrals: PCP Follow-up - 2-3 Days SNF/[facility]/ with [facility] New Medications: Oseltamivir (Tamiflu) 75 Mg Cap 75 MG PO BID for influenza, #5 CAP Continued Medications: Ascorbic Acid ER (Vitamin C Sr) 500 Mg Caper 1000 MG PO DAILY for Nutritional Supplement, CAP 0 Refills Aspirin (Aspirin) 325 Mg Tab 325 MG PO DAILY, #30 TAB 0 Refills Donepezil (Donepezil) 10 Mg Tab 10 MG PO HS for Dementia, #30 TAB 0 Refills Glucosamine (Glucosamine) 1,500 Mg Tab 1500 MG PO DAILY for Herbal Supplements, TAB 0 Refills Memantine (Namenda) 10 Mg Tab 10 MG PO BID for Alzheimer Disease, #30 TAB 0 Refills Multiple Vitamins W/ Minerals (Centrum Silver) 1 Chw Chw 1 CHEW PO DAILY Heron-3 Fatty Acids (Fish Oil) 1,000 Mg Cap 1 CAP PO DAILY Sildenafil (Sildenafil) 20 Mg Tab 20 MG PO TID for Pulm. arterial hypertension, #90 TAB 0 Refills Discontinued Medications: Rosuvastatin (Crestor) 10 Mg Tab 10 MG PO DAILY for Cholesterol Management, #30 TAB 0 Refills Evie Roberts MD May 22, 2017 13:11
[2017-05-22] MEDS ORDERED: OSEL75 PO (13:14)
== END 2017-05-22 13:51 | disposition home or self-care (01) | DRG 871 ==
LOC: PHED 04:15 → PHEDA 07:20 → PH3B 10:50 → OBSVTOIN 15:44
PROVIDERS: ADMIT Family Medicine; ATTEND Family Medicine
DX: A41.9 Sepsis, unspecified organism (principal); J10.00 Influenza due to other identified influenza virus with unspecified type of pneumonia; E87.2 Acidosis; M62.82 Rhabdomyolysis; J40 Bronchitis, not specified as acute or chronic; E11.9 Type 2 diabetes mellitus without complications; E78.5 Hyperlipidemia, unspecified; I10 Essential (primary) hypertension; F03.90 Unspecified dementia, unspecified severity, without behavioral disturbance, psychotic disturbance, mood disturbance, and anxiety; R50.9 Fever, unspecified; R00.0 Tachycardia, unspecified
CPT/HCPCS: 71010; 80048; 81001; 82550; 82552; 83605; 83735; 83880; 84484; 85025; 85027; 87040; 87070; 87205; 87449; 87804; 93005; 94150; 94620; 94640; 94664; 96365; 96367; G8987-GP; G8988-GP; J0456; J0696; J1644; J7030; J7040; J7050

== ENCOUNTER → 2017-05-26 | Outpatient (CLI) | payer MEDICARE ==
[~2017-05-26] MED LIST changes: -ALL220TA; +ASPI325T PO; +CENTCHW3 PO; +DONE10TA7 PO; +FISH1000 PO; +GLUC15009 PO; +NAME10TA PO; +OSEL75 PO; -ROSU5; +SILD20TA11 PO; +VITA500C18 PO
[2017-05-26 07:21] LABS: HEMATOCRIT 42.3 % (39.0-51.0); MEAN CELL VOLUME 91.9 FL (80.0-100.0); MEAN CORPUSCULAR HGB CONC 34.8 % (32.0-36.0); PLATELET COUNT 227 TH/MM3 (150-450); RED CELL DISTRIBUTION WIDTH 12.5 % (11.6-17.2); REVIEW FLAG FINAL; WHITE BLOOD COUNT 6.6 TH/MM3 (4.0-11.0)
[2017-05-26 07:30] LABS: ANION GAP 8 MEQ/L (5-15); AST (GOT) 63 U/L (15-37); BICARBONATE 26.2 MEQ/L (21.0-32.0); BLOOD UREA NITROGEN 15 MG/DL (7-18); CHLORIDE 104 MEQ/L (98-107); GLOMERULAR FILTRATION RATE 86 ML/MIN (>89); GLUCOSE,FASTING 149 MG/DL (74-99); POTASSIUM 4.1 MEQ/L (3.5-5.1); SODIUM (NA) 138 MEQ/L (136-145)
[2017-05-26 07:40] LABS: ALKALINE PHOSPHATASE 41 U/L (45-117); ALT (GPT) 105 U/L (12-78); HDL CHOLESTEROL 34.9 MG/DL (40.0-60.0); LDL CHOLESTEROL 78 MG/DL (0-99); TOTAL BILIRUBIN ADULT 0.6 MG/DL (0.2-1.0)
[2017-05-26 12:11] LABS: HEMOGLOBIN A1a 1.5 %; HEMOGLOBIN A1b 1.2 %; HEMOGLOBIN Ao 78.2 %; HEMOGLOBIN F 2.2 %; HEMOGLOBIN LA1C 2.5 %; HEMOGLOBIN P3 4.3 %
== END ==
LOC: CLAB 06:37
PROVIDERS: ATTEND Family Medicine
DX: E11.9 Type 2 diabetes mellitus without complications (principal)
CPT/HCPCS: 36415; 80053; 80061; 83036; 84443; 85027

== ENCOUNTER → 2017-07-14 | Outpatient (CLI) | payer MEDICARE ==
[2017-07-14 07:42] LABS: ANION GAP 7 MEQ/L (5-15); AST (GOT) 20 U/L (15-37); BICARBONATE 27.7 MEQ/L (21.0-32.0); BLOOD UREA NITROGEN 14 MG/DL (7-18); CHLORIDE 104 MEQ/L (98-107); GLOMERULAR FILTRATION RATE 92 ML/MIN (>89); GLUCOSE,FASTING 156 MG/DL (74-99); SODIUM (NA) 139 MEQ/L (136-145)
[2017-07-14 07:48] LABS: ALKALINE PHOSPHATASE 39 U/L (45-117); ALT (GPT) 29 U/L (12-78); HDL CHOLESTEROL 44.2 MG/DL (40.0-60.0); LDL CHOLESTEROL 43 MG/DL (0-99); TOTAL BILIRUBIN ADULT 0.4 MG/DL (0.2-1.0)
[2017-07-14 15:51] LABS: HEMOGLOBIN A1a 1.5 %; HEMOGLOBIN A1b 0.9 %; HEMOGLOBIN Ao 80.8 %; HEMOGLOBIN F 2.1 %; HEMOGLOBIN LA1C 2.4 %; HEMOGLOBIN P3 4.1 %
== END ==
LOC: CLAB 06:33
PROVIDERS: ATTEND Family Medicine
DX: E11.9 Type 2 diabetes mellitus without complications (principal); R07.2 Precordial pain; R94.6 Abnormal results of thyroid function studies; K52.1 Toxic gastroenteritis and colitis; R05 Cough; F03.90 Unspecified dementia, unspecified severity, without behavioral disturbance, psychotic disturbance, mood disturbance, and anxiety
CPT/HCPCS: 36415; 80053; 80061; 83036

== ENCOUNTER → 2017-11-15 | Outpatient (CLI) | payer MEDICARE ==
[~2017-11-15] MED LIST changes: +ASPI-183 PO; -ASPI325T PO
[2017-11-15 08:00] LABS: HEMATOCRIT 42.6 % (39.0-51.0); HEMOGLOBIN 14.7 GM/DL (13.0-17.0); MEAN CELL VOLUME 93.2 FL (80.0-100.0); MEAN CORPUSCULAR HEMOGLOBIN 32.2 PG (27.0-34.0); MEAN CORPUSCULAR HGB CONC 34.5 % (32.0-36.0); MEAN PLATELET VOLUME 8.7 FL (7.0-11.0); PLATELET COUNT 177 TH/MM3 (150-450); RED BLOOD COUNT 4.57 MIL/MM3 (4.50-5.90); RED CELL DISTRIBUTION WIDTH 13.8 % (11.6-17.2); WHITE BLOOD COUNT 6.2 TH/MM3 (4.0-11.0)
[2017-11-15 08:21] LABS: ALBUMIN 4.3 GM/DL (3.4-5.0); ALT (GPT) 32 U/L (12-78); AST (GOT) 25 U/L (15-37); BICARBONATE 28.1 MEQ/L (21.0-32.0); BLOOD UREA NITROGEN 15 MG/DL (7-18); CALCIUM 8.7 MG/DL (8.5-10.1); CHLORIDE 104 MEQ/L (98-107); CHOLESTEROL 145 MG/DL (120-200); CREATININE 0.83 MG/DL (0.60-1.30); GLOMERULAR FILTRATION RATE 89 ML/MIN (>89); GLUCOSE,FASTING 159 MG/DL (74-99); SODIUM (NA) 140 MEQ/L (136-145)
[2017-11-15 08:31] LABS: ALKALINE PHOSPHATASE 40 U/L (45-117); HDL CHOLESTEROL 41.4 MG/DL (40.0-60.0); LDL CHOLESTEROL 52 MG/DL (0-99); TOTAL BILIRUBIN ADULT 0.6 MG/DL (0.2-1.0); TOTAL PROTEIN 7.2 GM/DL (6.4-8.2); TRIGLYCERIDES 256 MG/DL (42-150)
[2017-11-15 16:36] LABS: HEMOGLOBIN A1C 7.8 % (4.3-6.0)
== END ==
LOC: CLAB 06:41
PROVIDERS: ATTEND Family Medicine
DX: R91.1 Solitary pulmonary nodule (principal); E11.9 Type 2 diabetes mellitus without complications; M54.12 Radiculopathy, cervical region
CPT/HCPCS: 36415; 80053; 80061; 83036; 84443; 85027

== ENCOUNTER → 2018-03-27 | Outpatient (CLI) | payer MEDICARE ==
[2018-03-27 07:27] LABS: ALBUMIN 4.3 GM/DL (3.4-5.0); AST (GOT) 33 U/L (15-37); BICARBONATE 24.3 MEQ/L (21.0-32.0); BLOOD UREA NITROGEN 11 MG/DL (7-18); CALCIUM 8.9 MG/DL (8.5-10.1); CHLORIDE 104 MEQ/L (98-107); CHOLESTEROL 96 MG/DL (120-200); GLOMERULAR FILTRATION RATE 81 ML/MIN (>89); GLUCOSE,FASTING 180 MG/DL (74-99); SODIUM (NA) 140 MEQ/L (136-145)
[2018-03-27 07:28] LABS: ALT (GPT) 43 U/L (12-78)
[2018-03-27 07:38] LABS: ALKALINE PHOSPHATASE 42 U/L (45-117); CHOLESTEROL/ HDL RATIO 2.68 RATIO; HDL CHOLESTEROL 35.7 MG/DL (40.0-60.0); LDL CHOLESTEROL 24 MG/DL (0-99); TOTAL BILIRUBIN ADULT 0.5 MG/DL (0.2-1.0); TOTAL PROTEIN 7.1 GM/DL (6.4-8.2); TRIGLYCERIDES 183 MG/DL (42-150)
[2018-03-27 16:16] LABS: HEMOGLOBIN A1C 8.4 % (4.3-6.0)
== END ==
LOC: CLAB 06:34
PROVIDERS: ATTEND Family Medicine
DX: E11.9 Type 2 diabetes mellitus without complications (principal); E78.5 Hyperlipidemia, unspecified
CPT/HCPCS: 36415; 80053; 80061; 83036; 84443